=== PATIENT | female | born 1975 | race Caucasian/White ===

== ENCOUNTER → 2018-04-08 | Outpatient (CLI) | payer OTHER ==
[~2018-04-08] MED LIST: ALBU17I INH; AUGM875 PO; HYCOS PO; Z.0.NO CURRENT MEDS; ZYRT10TA12 PO
[2018-04-08 13:16] LABS: AUTOMATED NEUTROPHIL # 6.1 TH/MM3 (1.8-7.7); BASOPHIL % 0.3 % (0.0-2.0); EOSINOPHIL # 0.1 TH/MM3 (0-0.4); EOSINOPHIL % 1.1 % (0.0-4.0); HEMATOCRIT 42.3 % (35.0-46.0); HEMOGLOBIN 14.2 GM/DL (11.6-15.3); LYMPH % 21.6 % (9.0-44.0); LYMPHOCYTE # 1.9 TH/MM3 (1.0-4.8); MEAN CORPUSCULAR HGB CONC 33.7 % (32.0-36.0); MEAN PLATELET VOLUME 7.8 FL (7.0-11.0); MONO % 7.2 % (0.0-8.0); MONOCYTE # 0.6 TH/MM3 (0-0.9); NEUT % 69.8 % (16.0-70.0); PLATELET COUNT 261 TH/MM3 (150-450); RED BLOOD COUNT 4.75 MIL/MM3 (4.00-5.30); RED CELL DISTRIBUTION WIDTH 12.8 % (11.6-17.2); WHITE BLOOD COUNT 8.7 TH/MM3 (4.0-11.0)
[2018-04-08 13:20] LABS: BACTERIA, URINE MOD /hpf; BILIRUBIN, URINE NEG (NEG); BLOOD, URINE SMALL (NEG); GLUCOSE,URINE 50 mg/dL (NEG); HYALINE CAST, URINE 1 /lpf (RARE); KETONE, URINE NEG (NEG); NITRITE,URINE POS (NEG); SQUAMOUS EPITHELIAL CELL URINE 1 /hpf (0-5); URINE COLOR YELLOW (YELLW/STRAW); URINE LEUKOCYTE ESTERASE NEG (NEG)
== END ==
LOC: CPRE 12:32
PROVIDERS: ATTEND Obstetrics & Gynecology
DX: Z01.812 Encounter for preprocedural laboratory examination (principal); Z01.818 Encounter for other preprocedural examination; D06.9 Carcinoma in situ of cervix, unspecified; R82.99 Other abnormal findings in urine
CPT/HCPCS: 36415; 81001; 84702; 85025; 87077; 87086; 87186

== ENCOUNTER → 2018-04-10 | Day surgery (SDC) | payer OTHER ==
--- NOTE | 2018-04-09 21:40 | MH ---
cc: Bill Palacio MD, John A MD DATE OF ADMISSION: 04/10/2018 ADMITTING DIAGNOSIS: Carcinoma in situ of the cervix. HISTORY OF PRESENT ILLNESS: The patient is a 42-year-old single female, para 0, who has had a history of cryosurgery for dysplasia in 2001, REBECCA 1. She had atypical Pap smear suspicious for high-grade dysplasia 09/25/2017, colpo biopsies returned with severely dysplastic tissue. A LEEP procedure on 12/03/2017 returned with REBECCA 3 with a possible endocervical margin involvement. Her followup Pap smear from 03/06/2018 showed high-grade squamous lesions and atypical glandular cells. Colpo biopsies on 03/06/2018 showed high-grade dysplasia squamous and she is now admitted for a cone biopsy. PAST MEDICAL HISTORY: None. MEDICATIONS: Vitamins. ALLERGIES: NONE. TRANSFUSIONS: None. OBSTETRIC HISTORY: None. SOCIAL HISTORY: She is single, employed. Alcohol, tobacco and drugs are none. FAMILY HISTORY: Noncontributory. PHYSICAL EXAMINATION: GENERAL: Reveals a well-nourished, well-developed female. VITAL SIGNS: Stable. HEENT: Normal. CHEST: Clear. HEART: Regular rate. BREASTS: Symmetrical. ABDOMEN: Benign. PELVIC: Normal external genitalia and BUS. Vagina is normal. Cervix is normal. Uterus is normal size, shape, anterior. No adnexal masses. ASSESSMENT: As above. PLAN: She is now admitted for a cone biopsy. While in the office, procedures, risks, benefits, complications explained and accepted. We also discussed possible need for a hysterectomy pending findings. The patient would like to proceed. MD REINIER Avitia/ , 09:20 PM , 09:38 PM
[~2018-04-10] VITALS: Ht 154.9 cm; Wt 69.8 kg
[~2018-04-10] MED LIST changes: +ACETAMINOPHEN 1000 MG/100 ML 100 ML IV SCH; -ALBU17I INH; -AUGM875 PO; +CHLORHEXIDINE GLUCONATE 2 % 1 PACK (2 CLOTHS) TOPICAL PRN; +DEXAMETHASONE SOD PHOS 4 MG/ML VIAL IV ONE; +DO NOT ADM ANY ANTICOAGULANT DRUGS PRN; -HYCOS PO; +KETOROLAC TROMETHAMINE 30 MG/ML (IVP) VIAL IV PUSH ONE; +LACTATED RINGER'S 1000 ML IV PRN; +LIDOCAINE 1%/EPINEPHrine 1:100,000 SOLN 30 ML VIAL ONE; +LIDOCAINE HCL 1% PF 5 ML SYRINGE OTHER ONE; +METOCLOPRAMIDE HCL 10 MG/2 ML VIAL IV PRN; +METOPROLOL TARTRATE 25 MG TAB PO PRN; +MIDAZOLAM HCL 2 MG/2 ML VIAL ONE; +ONDANSETRON HCL 4 MG/2 ML VIAL IV ONE; +POVIDONE IODINE 5% (ANTISEPSIS KIT) 4 APPLICATIONS EACH NARE PRN; +PROPOFOL 200 MG/20 ML AMP IV ONE; +SODIUM CHLORID 0.9% 500 ML IV PRN; -Z.0.NO CURRENT MEDS; -ZYRT10TA12 PO; +ceFAZolin 1,000 MG/NS 100 ML IV SCH; +oxyCODONE/ACETAMINOPHEN 5 MG/325 MG TAB PO PRN
--- NOTE | 2018-04-10 08:25 | MP ---
cc: Bill Palacio MD DATE OF OPERATION: 04/10/2018 PREOPERATIVE DIAGNOSIS: Carcinoma in situ of the cervix. POSTOPERATIVE DIAGNOSIS: Carcinoma in situ of the cervix. Pathology pending. PROCEDURE PERFORMED: Cone biopsy. ANESTHESIA: General LMA. ESTIMATED BLOOD LOSS: Less than 100 mL FLUIDS: 1 liter crystalloid. OBJECTIVE FINDINGS: Following induction of adequate general LMA anesthesia, the patient was prepped and draped supine on the operating table in dorsal lithotomy position in sterile fashion with the bladder being drained by in and out catheterization. Exam under anesthesia revealed a normal size, shape, anterior uterus. No adnexal masses. Heavy weighted speculum was placed on the posterior fornix of the vagina, anterior lip of the cervix was grasped with single-tooth tenaculum. The cervix and uterus sounded to 8 cm with a soft dilator. Cervix was injected with 10 mL of lidocaine 1% with epinephrine. Cervix stained with Lugol's solution and then a cone biopsy performed with a bent knife handle. Specimen tagged at 12 o'clock and sent for permanent study. The endocervix was curetted with a small serrated curette and the cone bed cauterized with the Bovie. Four sutures of 0 Vicryl placed going outside to inside, each one encompassing each quadrant of the cervix and tied down on the endocervix with a soft sound in place to ensure cervical patency. Once these were tied down, hemostasis was excellent. Cervix sounded easily with no bleeding. All instruments were removed. All counts were correct. The patient's legs were taken down from the stirrups. She was awakened and taken to recovery room in good condition. Bill Palacio MD JAW/TL , 08:03 AM , 08:22 AM [email or web address]
[2018-04-10 09:15] VITALS: BP 134/84; PULSE 78; RESP 16; TEMP 96.9; O2SAT 100
== END | disposition home or self-care (01) ==
LOC: HSDC 05:49
PROVIDERS: ATTEND Obstetrics & Gynecology
DX: D06.9 Carcinoma in situ of cervix, unspecified (principal)
CPT/HCPCS: 00940; 57520; 88305; 88307; J0690; J1100; J1885; J2250; J2405; J3010; J7120